=== PATIENT | female | born 1990 | race African-American/Black ===

== ENCOUNTER 2017-09-23 16:24 | Emergency (ER) | payer SELFPAY ==
[~2017-09-23] VITALS: Ht 177.8 cm; Wt 74.0 kg
[~2017-09-23 16:24] MED LIST: ZOFR4TAB3 SL
[2017-09-23 16:27] VITALS: BP 112/58; PULSE 109; RESP 16; TEMP 98.9; O2SAT 97
[2017-09-23] MEDS ORDERED: KETOROLAC TROMETHAMINE 30 MG/ML (IVP) VIAL IV PUSH ONE (18:00)
--- NOTE | 2017-09-23 18:01 | PD ---
HPI Chief Complaint: Abdominal Pain Time Seen by Provider: 17:48 Travel History International Travel<30 days: No Contact w/Intl Traveler<30days: No Traveled to known affect area: No History of Present Illness HPI 27yo F with no PMH presents to the ED with c/o lower abdominal pain since last night. Said it is suprapubic and was radiating to right side before but now seems to be left side as well. +Chills. No documented fever. Pain is sharp, severity moderate. Pain is constant and now radiates to entire abdomen. Movement worsens pain. Nothing alleviates pain. +Increased urinary frequency. Denies any chest pain, sob, n/v, dysuria, hematuria, vaginal discharge. Pt does have some vaginal bleeding as it is towards the end of her menstrual period. Denies any PSH. PFSH Past Medical History ?: Not LMP: 08/2017 Social History Alcohol Use: No Tobacco Use: No Substance Use: No Allergies-Medications (Allergen,Severity, Reaction): Coded Allergies: No Known Allergies (Unverified Adverse Reaction, Unknown, 09/23/17) Reported Meds & Prescriptions Reported Meds & Active Scripts Active Tylenol (Acetaminophen) 325 Mg Tab 650 Mg PO Q6H PRN Bactrim DS (Sulfamethoxazole-Trimethoprim) 800-160 Mg Tab 1 Tab PO BID Review of Systems Except as stated in HPI: all other systems reviewed are Neg Physical Exam Narrative GENERAL: 27yo F in moderate distress. SKIN: Focused skin assessment warm/dry. HEAD: Atraumatic. Normocephalic. EYES: Pupils equal and round. No scleral icterus. No injection or drainage. ENT: No nasal bleeding or discharge. Mucous membranes pink and moist. NECK: Trachea midline. No JVD. CARDIOVASCULAR: Regular rate and rhythm. No murmur appreciated. RESPIRATORY: No accessory muscle use. Clear to auscultation. Breath sounds equal bilaterally. GASTROINTESTINAL: Abdomen soft, +TTP suprapubic region > LLQ > LUQ. No rebound tenderness or guarding. No RLQ ttp. BACK: No CVA tenderness bilaterally. MUSCULOSKELETAL: No obvious deformities. No clubbing. No cyanosis. No edema. NEUROLOGICAL: Awake and alert. No obvious cranial nerve deficits. Motor grossly within normal limits. Normal speech. PSYCHIATRIC: Appropriate mood and affect; insight and judgment normal. Data Data Last Documented VS Vital Signs Date Time Temp Pulse Resp B/P (MAP) Pulse Ox O2 Delivery O2 Flow Rate FiO2 09/23/17 21:52 89 16 105/52 (69) 98 09/23/17 18:24 Room Air 09/23/17 16:27 98.9 Orders Orders Complete Blood Count With Diff (09/23/17 17:54) Comprehensive Metabolic Panel (09/23/17 17:54) Lipase (09/23/17 17:54) Urinalysis - C+S If Indicated (09/23/17 17:54) Ct Abd/Pel W Iv Contrast(Rout) (09/23/17 17:54) Ed Urine Pregnancytest Poc (09/23/17 17:54) Ed Poc Ultrasound (09/23/17 ) Ketorolac Inj (Toradol Inj) (09/23/17 18:00) Urine Culture (09/23/17 18:05) Iohexol 350 Inj (Omnipaque 350 Inj) (09/23/17 19:42) Ceftriaxone Inj (Rocephin Inj) (09/23/17 20:30) Morphine Inj (Morphine Inj) (09/23/17 20:30) Ed Discharge Order (09/23/17 21:16) Labs Laboratory Tests Test 09/23/17 18:05 09/23/17 18:10 Urine Color YELLOW Urine Turbidity CLOUDY Urine pH 5.5 Urine Specific [place] 1.024 Urine Protein 30 mg/dL Urine Glucose (UA) NEG mg/dL Urine Ketones TRACE mg/dL Urine Occult Blood MOD Urine Nitrite POS Urine Bilirubin NEG Urine Urobilinogen LESS THAN 2.0 MG/DL Urine Leukocyte Esterase LARGE Urine RBC /hpf Urine WBC /hpf Urine WBC Clumps OCC Urine Squamous Epithelial Cells 18 /hpf Urine Bacteria FEW /hpf Urine Mucus MOD /lpf Microscopic Urinalysis Comment CULTURE INDICATED White Blood Count 15.4 TH/MM3 Red Blood Count 4.67 MIL/MM3 Hemoglobin 13.5 GM/DL Hematocrit 41.3 % Mean Corpuscular Volume 88.5 FL Mean Corpuscular Hemoglobin 29.0 PG Mean Corpuscular Hemoglobin Concent 32.8 % Red Cell Distribution Width 15.4 % Platelet Count 325 TH/MM3 Mean Platelet Volume 7.3 FL Neutrophils (%) (Auto) 88.3 % Lymphocytes (%) (Auto) 7.0 % Monocytes (%) (Auto) 4.1 % Eosinophils (%) (Auto) 0.3 % Basophils (%) (Auto) 0.3 % Neutrophils # (Auto) 13.6 TH/MM3 Lymphocytes # (Auto) 1.1 TH/MM3 Monocytes # (Auto) 0.6 TH/MM3 Eosinophils # (Auto) 0.0 TH/MM3 Basophils # (Auto) 0.1 TH/MM3 CBC Comment DIFF FINAL Differential Comment Blood Urea Nitrogen 9 MG/DL Creatinine 1.06 MG/DL Random Glucose 102 MG/DL Total Protein 8.4 GM/DL Albumin 3.8 GM/DL Calcium Level 9.4 MG/DL Alkaline Phosphatase 82 U/L Aspartate Amino Transf (AST/SGOT) 19 U/L Alanine Aminotransferase (ALT/SGPT) 21 U/L Total Bilirubin 0.5 MG/DL Sodium Level 138 MEQ/L Potassium Level 4.1 MEQ/L Chloride Level 105 MEQ/L Carbon Dioxide Level 23.8 MEQ/L Anion Gap 9 MEQ/L Estimat Glomerular Filtration Rate 74 ML/MIN Lipase 50 U/L [facility] Medical Decision Making Medical Screen Exam Complete: Yes Emergency Medical Condition: Yes Differential Diagnosis Nephrolithiasis vs. colitis vs. cystitis vs. pyelonephritis vs. appendicitis Narrative Course 27yo F with diffuse abdominal pain. Pt initially mildly tachycardic at 109bpm, repeat HR improved. Urine negative. Labs reviewed, leukocytosis at 15.4. H/H normal. Lipase low. Creatinine 1.06. UA showed positive nitrite. Large leukocyte. Pt given ceftriaxone. Pt has no nausea or vomiting. She is well appearing but still with pain after toradol so morphine given. CT a/p showed 2.8cm left adnexal cyst. No free fluid in the cul-de-sac. Otherwise unremarkable examination for patient's age. Appendix unremarkable. Pt reevaluated at bedside and pain has improved. She is young and nontoxic appearing, will try outpatient treatment first. Return precautions given. Diagnosis Primary Impression: Cystitis Patient Instructions: General Instructions Departure Forms: Tests/Procedures Additional Instructions: Please follow up with your primary care physician in 2-3 days. Return to the ED if symptoms worsen. Med/Other Pt SpecificInfo: Prescription(s) given Scripts Acetaminophen (Tylenol) 325 Mg Tab 650 MG PO Q6H Y for PAIN SCALE 1 TO 4, #20 TAB 0 Refills Prov: Kennedi Guerrero DO 09/23/17 Sulfamethoxazole-Trimethoprim (Bactrim DS) 800-160 Mg Tab 1 TAB PO BID for Infection, #20 TAB 0 Refills Prov: Kennedi Guerrero DO 09/23/17 Disposition: 01 DISCHARGE HOME Condition: Stable Kennedi Guerrero DO September 23, 2017 18:01
[2017-09-23 18:24] VITALS: BP 126/72; PULSE 98; RESP 20; O2SAT 99
[2017-09-23 18:37] LABS: AUTOMATED NEUTROPHIL # 13.6 TH/MM3 (1.8-7.7); BASOPHIL # 0.1 TH/MM3 (0-0.2); BASOPHIL % 0.3 % (0.0-2.0); EOSINOPHIL % 0.3 % (0.0-4.0); HEMATOCRIT 41.3 % (35.0-46.0); HEMOGLOBIN 13.5 GM/DL (11.6-15.3); LYMPHOCYTE # 1.1 TH/MM3 (1.0-4.8); MEAN CELL VOLUME 88.5 FL (80.0-100.0); MEAN CORPUSCULAR HGB CONC 32.8 % (32.0-36.0); MEAN PLATELET VOLUME 7.3 FL (7.0-11.0); MONO % 4.1 % (0.0-8.0); MONOCYTE # 0.6 TH/MM3 (0-0.9); NEUT % 88.3 % (16.0-70.0); PLATELET COUNT 325 TH/MM3 (150-450); RED BLOOD COUNT 4.67 MIL/MM3 (4.00-5.30); RED CELL DISTRIBUTION WIDTH 15.4 % (11.6-17.2); WHITE BLOOD COUNT 15.4 TH/MM3 (4.0-11.0)
[2017-09-23 18:40] LABS: ALBUMIN 3.8 GM/DL (3.4-5.0); AST (GOT) 19 U/L (15-37); BICARBONATE 23.8 MEQ/L (21.0-32.0); BLOOD UREA NITROGEN 9 MG/DL (7-18); CALCIUM 9.4 MG/DL (8.5-10.1); CHLORIDE 105 MEQ/L (98-107); CREATININE 1.06 MG/DL (0.50-1.00); GLOMERULAR FILTRATION RATE 74 ML/MIN (>89); GLUCOSE,RANDOM 102 MG/DL (74-106); SODIUM (NA) 138 MEQ/L (136-145)
[2017-09-23 18:41] LABS: ALT (GPT) 21 U/L (10-53)
[2017-09-23 18:42] LABS: BACTERIA, URINE FEW /hpf; BILIRUBIN, URINE NEG (NEG); BLOOD, URINE MOD (NEG); GLUCOSE,URINE NEG (NEG); KETONE, URINE TRACE mg/dL (NEG); MUCUS URINE MOD /lpf (OCC); NITRITE,URINE POS (NEG); PH, URINE 5.5 (5.0-8.5); SQUAMOUS EPITHELIAL CELL URINE 18 /hpf (0-5); URINE COLOR YELLOW (YELLW/STRAW); URINE LEUKOCYTE ESTERASE LARGE (NEG); WHITE BLOOD CELL CLUMPS OCC
[2017-09-23 18:43] LABS: ALKALINE PHOSPHATASE 82 U/L (45-117); TOTAL BILIRUBIN ADULT 0.5 MG/DL (0.2-1.0); TOTAL PROTEIN 8.4 GM/DL (6.4-8.2)
[2017-09-23] MEDS ORDERED: IOHEXOL 350 MG/ML 10 ML VIAL (for RAD DIAG) IVCONTRAST ONE (19:42)
--- NOTE | 2017-09-23 20:15 | RADRPT ---
EXAM DATE: 09/23/2017 7:46 PM EDT AGE/SEX: 27 years / Female INDICATIONS: Lower abdominal pain. CLINICAL DATA: This is the patient's initial encounter. Patient reports that signs and symptoms have been present for 1 day and indicates a pain score of 10/10. MEDICAL/SURGICAL HISTORY: None. None. ORAL CONTRAST: No oral contrast ingested. RADIATION DOSE: 5.90 CTDI (mGy) COMPARISON: No prior [facility] exams available for comparison. TECHNIQUE: Multiple contiguous axial images were obtained through the abdomen and pelvis following b olus infusion of 100 ml Omnipaque 350 (iohexol) nonionic water-soluble contrast as a single exam do se. No oral contrast ingested. Using automated exposure control and adjustment of the mA and/or kV a ccording to patient size, the radiation dose was kept as low as reasonably achievable to obtain optim al diagnostic quality images. FINDINGS: Lower Lungs: The visualized lower lungs are clear. Liver: The liver has a homogeneous density without space-occupying lesion. There is no dilation of th e biliary tree. Gallbladder is unremarkable. Spleen: Homogeneous density without enlargement. Pancreas: Unremarkable without mass or calcification. Kidneys: Normal in size and shape. No evidence of mass or hydronephrosis. Adrenal Glands: Unremarkable. Aorta: The aorta and proximal iliac vessels are grossly unremarkable without aneurysmal dilation. Bowel/Mesentery: The bowel loops are grossly unremarkable. The cecum and sigmoid colon have a normal configuration. The appendix is unremarkable. No inflammatory changes are demonstrated. There is stoo l throughout the colon.. Abdominal Wall: Intact. Retroperitoneum: No evidence of adenopathy in the retrocrural, para-aortic, or deep pelvic regions. Bladder: Contours are smooth. Reproductive Organs: The uterus is grossly within normal limits. There appears to be a left adnexal cyst measuring 2.8 cm. No definite free fluid in the cul-de-sac. Inguinal: The inguinal region is unremarkable without evidence of adenopathy. Bony Structures: Unremarkable. CONCLUSION: 1. 2.8 cm left adnexal cyst. No free fluid in the cul-de-sac. 2. Otherwise, unremarkable examination for patient's age. Electronically signed by: Saturnino Jordan MD 09/23/2017 8:13 PM EDT
[2017-09-23] MEDS ORDERED: cefTRIAXone INJ 1,000 MG in SODIUM CHLORIDE 0.9% INJ 100 ML IV ONE (20:30)
[2017-09-23] MEDS ORDERED: MORPHINE SULFATE 4 MG/ML INJ IV PUSH ONE (20:30)
[2017-09-23] MEDS ORDERED: BACT800T5 PO (21:16)
[2017-09-23] MEDS ORDERED: TYLE325T PO (21:16)
[2017-09-23 21:52] VITALS: BP 105/52
== END 2017-09-23 21:54 | disposition home or self-care (01) ==
LOC: NEPD 16:24
DX: N30.90 Cystitis, unspecified without hematuria (principal); R00.0 Tachycardia, unspecified
CPT/HCPCS: 74177; 80053; 81001; 83690; 84703; 85025; 87077; 87086; 87186; 96365; 96375; 99285; J0696; J1885; J2270; Q9967